=== PATIENT | female | born 1950 | race Caucasian/White ===

== ENCOUNTER 2016-07-30 15:01 | Outpatient (CLI) | payer MEDICARE, OTHER ==
[2016-07-30 15:17] LABS: BASOPHILS % 0.1 (0.0-1.5); EOSINOPHILS % 0.9 % (0.0-6.8); LYMPHOCYTES # 0.6 # k/uL (0.6-4.0); MEAN CORPUSCULAR HEMOGLOBIN 30.5 pg (28.0-34.0); MONOCYTES # 0.5 # k/uL (0.0-0.9); MONOCYTES % 5.3 % (0.0-11.0); NEUTROPHILS # 7.8 # k/uL (1.4-7.7)
[2016-07-30 15:42] LABS: eGFR (African) > 60; eGFR (Non-African) > 60
== END 2016-07-30 15:02 ==
LOC: LAB 15:01
PROVIDERS: ATTEND Student in an Organized Health Care Education/Training Program
DX: M06.9 Rheumatoid arthritis, unspecified (principal)
CPT/HCPCS: 36415; 80053; 85025